=== PATIENT | female | born 1955 | race Caucasian/White ===

== ENCOUNTER 2018-01-21 17:23 | Inpatient (IN) | payer OTHER ==
[~2018-01-21] VITALS: Ht 162.6 cm; Wt 78.0 kg
--- NOTE | ~2018-01-21 | EKG ---
[address] [employer] [address] ELECTROCARDIOGRAM REPORT Name: CHECO BATISTA Room #: 206- ADM IN M.R.#: [id number] Admission: 01/21/18 Attend Phys: Darlene Ohara Discharge: Date of : 57 Report #: [id number] THIS REPORT FOR: //name// [facility] Test Date: 2018-01-23 Test Time: 06:28:13 Pat Name: CHECO BATISTA Department: Room: 206 Gender: F Lot Boss: FLAKO : 1955 Requested By: Humberto Henriquez Order Number: [id number] MD: Mukesh Ram Measurements Intervals [place] Rate: 62 P: 29 ID: 164 QRS: 52 QRSD: 93 T: 45 QT: 446 QTc: 453 Interpretive Statements Sinus rhythm Baseline wander in lead(s) V4 Compared to ECG 01/22/2018 10:27:11 No significant changes Electronically Signed On 01-23-2018 8:05:06 HYDRAULIC OIL TOOL OPERATOR by Mukesh Ram [email or web address] <ELECTRONICALLY SIGNED> By: Mukesh Ram MD 11/804 7 7 MD SENAIT Gomez
--- NOTE | ~2018-01-21 | EKG ---
[address] [place] [address] ELECTROCARDIOGRAM REPORT Name: CHECO BATISTA Room #: 206- ADM IN M.R.#: [id number] Admission: 01/21/18 Attend Phys: Darlene Ohara Discharge: Date of : 57 Report #: [id number] THIS REPORT FOR: //name// [facility] Test Date: 2018-01-22 Test Time: 10:27:11 Pat Name: CHECO BATISTA Department: Room: 206 Gender: F Pharmaceutical Sales: Esteban ESCOBAR : 1955 Requested By: Humberto Henriquez Order Number: [id number] MD: Mukesh Ram Measurements Intervals [place] Rate: 70 P: 25 PA: 180 QRS: 57 QRSD: 93 T: 59 QT: 436 QTc: 471 Interpretive Statements Sinus rhythm Compared to ECG 03/07/1999 06:17:02 ST (T wave) deviation no longer present Electronically Signed On 01-22-2018 14:48:28 SUPERVISOR [employer] by Mukesh Ram [email or web address] <ELECTRONICALLY SIGNED> By: Mukesh Ram MD 01/22/18 1448 1027 102 Mukesh Ram MD /MARTHA
--- NOTE | ~2018-01-21 | CATHLAB ---
[facility] [address] [place] [address] INVASIVE PROCEDURE REPORT Name: LESTERCHECO Faina Room #: 206-P [facility] IN ..#: [id number] Admission: 01/21/18 Attend Phys: Darlene Barajas Discharge: Date of : 57 Date of Service: 01/22/18 1020 Report #: [id number] THIS REPORT FOR: //name// APPROVED REPORT Study performed: 01/22/2018 07:27:52 Patient Details Patient Status: In-Patient Room #: The patient is a 62 year-old female Event Personnel Humberto Henriquez Quality Assurance Representative, Matt Chino RN, Vianey Corbin RTR, LUIS Crouch, Mathew Fonseca Monitor Procedures Performed Left Heart Cath Coronaries, Bypass Grafts [id number] LHCCORCABG SUZANNA Place w/wo Plasty Addl BR DIAG 1 C9601 DESADDL Indication Chest pain Procedure Narrative The Right Groin^ was infiltrated with 1% Lidocaine subcutaneous anesthesia. A PINNACLE 6FR Sheath #[id number] sheath was inserted into the RFA^. Coronary angiography was performed using coronary diagnostic catheters. The right coronary system was accessed and visualized with a JR4 catheter. The left coronary system was accessed and visualized with a JL4 catheter. The left ventricle was accessed and visualized with a PIGTAIL catheter. Left ventricular/Aortic Valve gradient assessed via catheter pullback. Left ventriculogram was performed in 30 degree projection. Closure device was deployed with a 6 Fr MYNXGRIP 6/7F #[id number]. The patient tolerated the procedure well and there were no complications associated with the procedure. There was no hematoma. Intraoperative Conscious Sedation Sedation start time: 7.50 Case end Time: 9.07 Fentanyl 150 mcg Versed 3 mg Fluoro Time: 11.56 minutes Dose: DAP 9116 cGycm2 1313 mGy Contrast Type and Amount: Omnipaque 490 ml [facility] [place] [address] INVASIVE PROCEDURE REPORT Name: CHECO BATISTA Room #: 206-P [facility] IN [facility]#: [id number] Admission: 01/21/18 Attend Phys: Darlene Barajas Discharge: Date of : 57 Date of Service: 01/22/18 1020 Report #: [id number] Coronary Angiography The patient's coronary anatomy is right dominant. Diagnostic Cath Left Main Normal left main LAD 90% proximal LAD stenosis. The LAD was occluded in its midportion after a large second diagonal branch Patent left internal mammary to the midportion of the LAD with good runoff into the mid to distal LAD Diagonal 1 Relatively small and angiographically normal Diagonal 2 95% ostial first diagonal branch stenosis Circumflex Circumflex was large but nondominant and comprised of a bifurcating OM1 OM1 Mild plaquing in the distal limb of this bifurcating first marginal branch Right Coronary Occluded mid right coronary Widely patent and angiographically normal free MARIA E to the distal right coronary R PDA Posterior descending appeared to be angiographically normal RPLV Posterior lateral branch exhibited a 65% proximal stenosis Left Ventriculography The left ventricle is mildly dilated in size with abnormal contractility. The left ventricular ejection fraction is estimated to be 45-50%. Left ventricular wall motion abnormalities are not presentpresent. There is no mitral insufficiency. Hypokinesis involving the base of the inferior wall. Hemodynamics The aortic pressure is 174/82 mmHg with a mean of 107 mmHg. The left ventricular pressure is 188/4 mmHg with a mean of mmHg. The left ventricular end diastolic pressure is 27 mmHg. There was no gradient across the aortic valve upon pullback. Pullback from the left ventricle to the aorta revealed no gradient across the aortic valve. PCI Technique Lesion Anticoagulation was achieved with Heparin, Integrilin. Patient was preloaded with Plavix. Percutaneous coronary intervention was performed on the proximal LAD with extension into second diagnonal branch segment. The lesion stenosis prior to intervention was 99% with NUSRAT 3 flow. A LAUNCHER 6FR JL4 #[id number] Guide Catheter was used to engage the left main ostium. A Luge Wire .014 x 182CM #[id number] [facility] [address] [place] [address] INVASIVE PROCEDURE REPORT Name: BATISTACHECO Room #: 206-P [facility] IN .R.#: [id number] Admission: 01/21/18 Attend Phys: Darlene Barajas Discharge: Date of : 57 Date of Service: 01/22/18 1020 Report #: [id number] Interventional Guidewire was used to cross the lesion. BALLOON DILATION A Balloon catheter Euphora RX 2.5 x 10 #[id number] was inserted and inflated up to 12.00atm for 29seconds. Additional Inflation: 6.00atm for 17seconds. Additional Inflation: 8.00atm for 22seconds. STENT DEPLOYMENT A drug-eluting stent RESOLUTE CARISSA RX 2.5 X 30 #[id number] was inserted and inflated up to 16.00atm for 27seconds. Repeat angiography revealed the following post-stent deployment results: 0% residual stenoiss. This stent extended from the proximal LAD into the second diagonal branch POST STENT DEPLOYMENT BALLOON DILATION A Balloon catheter TREK NC RX 2.75 X 15 #[id number] was inserted and inflated up to 12.00atm for 33seconds. Additional Inflation: 18.00atm for 31seconds. Additional Inflation: 18.00atm for 19seconds. Final angiography reveals 0 % stenosis with NUSRAT 3 flow. Conclusion 1. Mild-moderate LV dysfunction with hypokinesis involving the base of the inferior wall. EF 45%. No MR 2. Severe two vessel CAD. Patent ROSA to LAD, free MARIA E from aorta to PDA 3. Severe proximal LAD and D2 disease prior to LAD occlusion successfully stented with 2.5 x 30mm Resolute stent, post dilated to 2.75mm 4. Dominant right coronary. Moderate 60% PL branch stenosis. Follow closely; medical therpy Recommendations Cardiac Rehabilitation Referral Aggressive Medical Therapy Medications Administered ARB (any) Aspirin (any) Beta Sarah (any) Statin (any) [facility] [address] [place] [address] INVASIVE PROCEDURE REPORT Name: CHECO BATISTA Room #: 206-P ADM IN M.R.#: [id number] Admission: 01/21/18 Attend Phys: Darlene Barajas Discharge: Date of : 57 Date of Service: 01/22/18 1020 Report #: [id number] Clopidogrel Cardiac Rehabilitation Referral <ELECTRONICALLY SIGNED> By: Humberto Henriquez MD, FACC 01/22/18 1020 1020 1020 Humberto Henriquez MD, FACC /INF
--- NOTE | ~2018-01-21 | EKG ---
[address] [place] [address] ELECTROCARDIOGRAM REPORT Name: CHECO BATISTA Room #: 206- ADM IN M.R.#: [id number] Admission: 01/21/18 Attend Phys: Darlene Ohara Discharge: Date of : 57 Report #: [id number] THIS REPORT FOR: //name// [facility] Test Date: 2018-01-21 Test Time: 17:46:33 Pat Name: CHECO BATISTA Department: Room: 206 Gender: F Ball Fringe Machine Operator: Ismael THURMAN : 1955 Requested By: Mario Foster Order Number: [id number] MD: Mukesh Ram Measurements Intervals [place] Rate: 65 P: 21 [place]: 174 QRS: 41 QRSD: 92 T: 24 QT: 436 QTc: 454 Interpretive Statements Sinus rhythm Compared to ECG 03/07/1999 06:17:02 ST (T wave) deviation no longer present Electronically Signed On 01-22-2018 14:19:45 KIER TENDER by Mukesh Ram [email or web address] <ELECTRONICALLY SIGNED> By: Mukesh Ram MD 01/22/18 1419 174 174 Mukesh Ram MD /EPI
--- NOTE | ~2018-01-21 | HC ---
[facility] [place] [place] [address] CONSULTATION Name: CHECO BATISTA Faina Room #: 206-P [facility] IN M.R.#: [id number] Admission: 01/21/18 Attend Phys: Darlene Ohara Discharge: Date of : 57 Report #: [id number] THIS REPORT FOR: //name// CC: Viviane Ohara REASON FOR CONSULTATION: Chest pain. HISTORY OF PRESENT ILLNESS: The patient is a 62-year-old woman with history of coronary disease with remote bypass with a left internal mammary to the LAD and a free right internal mammary to the posterior descending. Over the past several weeks, she has had terrible problems with reflux disease. This has been a longstanding symptom. In hindsight, it was reflux symptoms that originally resulted in her presentation and identification of coronary disease in 2001 leading to bypass surgery. She had prolonged episode of pain yesterday, radiating to both arms and into the middle portion of her back. She presented to [facility]. Her initial cardiac enzymes were normal, although the second set was abnormal at 0.26. She was life-flighted to [facility]. She has had no pain since being placed on aspirin and heparin. She denies heart failure symptoms including orthopnea, paroxysmal nocturnal dyspnea, or lower extremity edema. No history of near syncope or syncope. ALLERGIES: No known drug allergies. MEDICATIONS: Include aspirin, atorvastatin 80 mg daily, tamoxifen 20 mg daily, paroxetine 40 mg daily, omeprazole. PAST MEDICAL HISTORY: Medical records have been reviewed and include history of breast cancer; appendectomy; hysterectomy; reflux disease; bypass surgery, 2-vessel. SOCIAL HISTORY: She is a nonsmoker, . FAMILY HISTORY: Unremarkable for premature coronary disease. REVIEW OF SYSTEMS: All systems negative except as that noted above. PHYSICAL EXAMINATION: GENERAL: A pleasant woman who is alert, in no distress. VITAL SIGNS: Blood pressure is 130/75, heart rate is 73 and regular. She is afebrile. 5 feet 4 inches tall, 172 pounds. HEENT: There are neither xanthelasma, subcutaneous xanthomata, oral mucosal or digital cyanosis or kyphoscoliosis present. CHEST: Clear to auscultation and percussion. CARDIAC: Regular rate and rhythm with normal S1, S2. No murmurs or rubs. ABDOMEN: Soft and nontender. EXTREMITIES: Without cyanosis, clubbing or edema. Radial pulses are 2+. [facility] [address] [place] [address] CONSULTATION Name: CHECO BATISTA Room #: 206-P [facility] IN [facility]#: [id number] Admission: 01/21/18 Attend Phys: Darlene Ohara Discharge: Date of : 57 Report #: [id number] NEUROLOGIC: She is alert with a nonfocal exam. LABORATORY DATA: EKG, sinus bradycardia, otherwise normal tracing. Sodium 142, potassium 3.6. Troponin 1.12. White count 5.4, hemoglobin 11, hematocrit 35, platelet count 294. CT of the chest, no pulmonary emboli, no acute processes. IMPRESSION: 1. Non-Q-wave myocardial infarction. 2. Coronary disease with remote 2-vessel bypass. 3. Dyslipidemia. 4. Reflux disease. RECOMMENDATIONS: 1. Coronary angiography. 2. Continued aggressive risk factor modification. The angiographic procedure was discussed in detail including its associated risks. After a thorough discussion of the procedure, its risks and alternatives and after answering her questions, she is agreeable to proceeding. Thank you for asking me to participate in the patient's care. <ELECTRONICALLY SIGNED> By: Humberto Henriquez MD, FACC 01/22/18 0924 0742 0846 Humberto Henriquez MD, FACC /nt
[2018-01-21 19:16] LABS: HEMOGLOBIN 11.1 gm/dL (12.0-15.0); MCHC 33.7 g/dL (28.0-37.0); MCV 83.1 fL (80.0-100.0); RBC 3.97 mil/uL (4.20-5.00); RDW 15.1 % (10.5-14.5); WBC 5.7 thou/uL (4.0-11.0)
[2018-01-21 19:26] LABS: CALCIUM 9.3 mg/dL (8.5-10.1); CREATININE 0.7 mg/dL (0.6-1.0); POTASSIUM 3.7 mmol/L (3.5-5.1)
[2018-01-21 20:18] VITALS: BP 152/56
[2018-01-21 20:58] LABS: INR 1.1; PROTIME 11.3 Seconds (9.3-11.4)
[2018-01-22 00:01] VITALS: BP 146/83
[2018-01-22 03:55] VITALS: BP 131/75
[2018-01-22 04:28] LABS: CALCIUM 8.7 mg/dL (8.5-10.1); CREATININE 0.8 mg/dL (0.6-1.0); POTASSIUM 3.6 mmol/L (3.5-5.1)
[2018-01-22 04:36] LABS: HEMOGLOBIN 11.3 gm/dL (12.0-15.0); MCH 27.2 pg (26.0-34.0); MCHC 32.4 g/dL (28.0-37.0); MCV 84.1 fL (80.0-100.0); RBC 4.16 mil/uL (4.20-5.00); RDW 15.1 % (10.5-14.5); WBC 5.1 thou/uL (4.0-11.0)
[2018-01-22 07:59] LABS: CHOLESTEROL 191 mg/dL (<200); HDL CHOLESTEROL 46 mg/dL (>40); LDL CHOLESTEROL 101 mg/dL (<100); TC:HDL 4.2 Ratio (Not establshd); TRIGLYCERIDE 223 mg/dL (<150); VLDL 45 mg/dL (<40)
[2018-01-22 09:29] VITALS: BP 121/71
[2018-01-22 19:33] VITALS: BP 124/69
[2018-01-23 00:19] VITALS: BP 124/55
[2018-01-23 04:19] LABS: HEMATOCRIT 31.7 % (37.0-47.0); HEMOGLOBIN 10.2 gm/dL (12.0-15.0); MCHC 32.1 g/dL (28.0-37.0); MCV 84.2 fL (80.0-100.0); RBC 3.76 mil/uL (4.20-5.00); RDW 14.9 % (10.5-14.5); WBC 5.8 thou/uL (4.0-11.0)
[2018-01-23 04:37] LABS: CALCIUM 8.4 mg/dL (8.5-10.1); CREATININE 0.8 mg/dL (0.6-1.0); POTASSIUM 3.7 mmol/L (3.5-5.1); TOTAL BILIRUBIN 0.3 mg/dL (<0.1-1.0); TOTAL PROTEIN 6.1 g/dL (6.4-8.2)
[2018-01-23 04:59] LABS: TROPONIN-I 0.87 ng/mL (<0.06)
[2018-01-23 05:34] VITALS: BP 137/78
[2018-01-23] MEDS ORDERED: ASPIRIN325 PO (08:10)
[2018-01-23] MEDS ORDERED: ATORVASTATIN CA40 MG PO (08:10)
[2018-01-23] MEDS ORDERED: CLOPIDOGREL75 MG PO (08:10)
[2018-01-23] MEDS ORDERED: COZAAR 25 MG TA25 M1 PO (08:10)
[2018-01-23] MEDS ORDERED: METOPROLOL SUCC25 M1 PO (08:10)
[2018-01-23] MEDS ORDERED: NEXIUM40 MG PO (08:36)
[2018-01-23 09:03] VITALS: BP 126/56
[2018-01-23 12:00] VITALS: BP 108/52
[2018-01-23 12:49] VITALS: BP 108/52
== END 2018-01-23 13:25 | disposition home or self-care (01) | DRG 247 ==
LOC: 2N 17:23 → ENTRNSPT 01-23 13:10 → EDTRNSPTSTS 01-23 13:19 → 2N 01-23 13:25
PROVIDERS: Hospitalist; Internal Medicine; Internal Medicine Cardiovascular Disease
PROC: 027034Z Dilation of Coronary Artery, One Artery with Drug-eluting Intraluminal Device, Percutaneous Approach (ICD-10-PCS; principal; 2018-01-22)
PROC: B2171ZZ Fluoroscopy of Right Internal Mammary Bypass Graft using Low Osmolar Contrast (ICD-10-PCS; principal; 2018-01-22)
PROC: B2151ZZ Fluoroscopy of Left Heart using Low Osmolar Contrast (ICD-10-PCS; principal; 2018-01-22)
PROC: B2111ZZ Fluoroscopy of Multiple Coronary Arteries using Low Osmolar Contrast (ICD-10-PCS; principal; 2018-01-22)
PROC: B2181ZZ Fluoroscopy of Left Internal Mammary Bypass Graft using Low Osmolar Contrast (ICD-10-PCS; principal; 2018-01-22)
PROC: 4A023N7 Measurement of Cardiac Sampling and Pressure, Left Heart, Percutaneous Approach (ICD-10-PCS; principal; 2018-01-22)
DX: I21.4 Non-ST elevation (NSTEMI) myocardial infarction (principal); I10 Essential (primary) hypertension; I25.10 Atherosclerotic heart disease of native coronary artery without angina pectoris; K21.9 Gastro-esophageal reflux disease without esophagitis; I25.5 Ischemic cardiomyopathy; E78.5 Hyperlipidemia, unspecified; F32.9 Major depressive disorder, single episode, unspecified; Z87.891 Personal history of nicotine dependence; Z95.1 Presence of aortocoronary bypass graft; Z85.3 Personal history of malignant neoplasm of breast; Z90.49 Acquired absence of other specified parts of digestive tract; Z90.710 Acquired absence of both cervix and uterus; Z79.82 Long term (current) use of aspirin; Z79.899 Other long term (current) drug therapy
CPT/HCPCS: 10081